=== PATIENT | male | born 1965 | race Caucasian/White ===

== ENCOUNTER 2017-08-26 20:26 | Emergency (ER) | payer OTHER ==
[2017-08-27 03:13] LABS: ADD MAN DIFF? NO
[2017-08-27 03:16] LABS: WHITE BLOOD COUNT 6.9 10^3/ul (4.8-10.8)
[2017-08-27 03:16] LABS: BASOPHILS % 0.4 % (0.0-2.0); EOSINOPHILS # 0.4 10^3/ul (0.0-0.5); EOSINOPHILS % 6.1 % (0.0-7.0); HEMATOCRIT 42.6 % (42.0-52.0); LYMPHOCYTES # 2.6 10^3/ul (0.8-2.9); LYMPHOCYTES % 37.6 % (15.0-51.0); MEAN CORPUSCULAR HEMOGLOBIN 29.5 pg (29.0-33.0); MEAN CORPUSCULAR HGB CONC 32.9 g/dl (32.0-37.0); MEAN CORPUSCULAR VOLUME 89.7 fl (82.0-101.0); MEAN PLATELET VOLUME 8.2 fl (7.4-10.4); MONOCYTE # 0.8 10^3/ul (0.3-0.9); NEUTROPHIL # 3.1 10^3/ul (1.6-7.5); NEUTROPHILS % 44.6 % (39.0-77.0); PLATELET COUNT 209 10^3/UL (140-415); RED BLOOD COUNT 4.75 10^6/ul (4.70-6.10); RED CELL DISTRIBUTION WIDTH 12.4 % (11.5-14.5)
[2017-08-27 03:36] LABS: INR 0.99; PARTIAL THROMBOPLASTIN TIME 32.9 Sec (25.0-35.0); PROTIME 13.2 Sec (11.9-14.9)
[2017-08-27 03:39] LABS: ANION GAP 11 (8-16); BLOOD UREA NITROGEN 17 mg/dl (7-20); CALCIUM 9.2 mg/dl (8.4-10.2); CARBON DIOXIDE 28 mmol/L (21-31); CHLORIDE 108 mmol/L (97-110); GLUCOSE 96 mg/dl (70-220); POTASSIUM 3.8 mmol/L (3.5-5.1); SODIUM 143 mmol/L (135-144)
[2017-08-27 03:51] LABS: TROPONIN-I < 0.010 ng/ml (0.000-0.120)
[2017-08-27] MEDS: ASPIRIN 325 MG TAB PO (04:20)
[2017-08-27] MEDS: NITROGLYCERIN 2% 1 GM OINT PKT TD (04:21)
[2017-08-27] MEDS ORDERED: NITROGLYCERIN (SL) 0.4 MG TAB SL (05:00)
[2017-08-27] MEDS ORDERED: NACL 0.9% 3 ML SYG IV (05:00)
[2017-08-27] MEDS ORDERED: DOCUSATE SODIUM 100 MG CAP PO (05:00)
[2017-08-27] MEDS ORDERED: ACETAMINOPHEN 325 MG TAB PO (05:00)
[2017-08-27] MEDS ORDERED: ENALAPRILAT 1.25 MG INJ IV (05:00)
[2017-08-27] MEDS ORDERED: ONDANSETRON 4 MG INJ IV (05:00)
[2017-08-27] MEDS ORDERED: BISACODYL (EC) 5 MG TAB PO (05:00)
[2017-08-27] MEDS ORDERED: morphine 2 MG INJ IV (05:00)
[2017-08-27 07:30] LABS: MAGNESIUM 2.2 mg/dl (1.7-2.5)
[2017-08-27] MEDS ORDERED: LORAZEPAM 2 MG INJ IV (07:30)
[2017-08-27 08:24] LABS: CREATINE KINASE 95 IU/L (23-200)
[2017-08-27 08:29] LABS: ETHANOL < 10.0 mg/dl
[2017-08-27 08:36] LABS: CK INDEX 1.6; CK-MB 1.56 ng/ml (0.0-2.4); TROPONIN-I < 0.010 ng/ml (0.000-0.120)
[2017-08-27 08:37] LABS: HEMOGLOBIN A1C 5.7 % (0-5.9)
== END 2017-08-27 09:06 | disposition left against medical advice (07) ==
LOC: E/R 08-27 09:06
DX: R00.1 Bradycardia, unspecified (principal)
CPT/HCPCS: 36415; 71045; 80048; 80307; 82550; 82553; 83036; 83735; 84443; 84484; 85025; 85610; 85730; 93005; 93306; 99285-25